=== PATIENT | male | born 1960 | race Caucasian/White ===

== ENCOUNTER 2019-09-14 08:28 | Outpatient (CLI) | payer BC, SELFPAY ==
--- NOTE | ~2019-09-14 | XR_ITS ---
XR elbow RT min 3V DATE: 09/14/2019 08:49 INDICATION: Fall, right elbow injury, pain, swelling TECHNIQUE: 4 views COMPARISON: None FINDINGS: No fracture or dislocation or joint effusion. No periosteal reaction or bone destruction. IMPRESSION: Negative Reviewed, dictated and finalized at location A. IMPRESSION: Negative
== END 2019-09-14 08:29 | disposition home or self-care (01) ==
LOC: ANHIMG 08:35
PROVIDERS: PCP Family Medicine; Visit Provider Physician Assistant
DX: M25.521 Pain in right elbow (principal)
CPT/HCPCS: 73080

== ENCOUNTER 2020-06-02 05:22 | Emergency (ER) | payer BC, SELFPAY ==
[2020-06-02 05:24] VITALS: PULSE 95; RESP 18; TEMP 35.7; O2SAT 100
--- NOTE | 2020-06-02 05:34 | PC.NURSE ---
pt states his doctor thinks he is having pain due to sciatica. pt was prescribed flexeril and tramadol. pt took last tramadol at midnight last night. pt states he last took flexeril at 9pm. pt states he took a norco from a previouos kidney stone at 5am.
[2020-06-02 05:37] VITALS: BP 137/87
--- NOTE | 2020-06-02 05:55 | ED.LOWEXIN ---
HPI - Extremity Injury (Lower) General Chief Complaint: Extremity Injury, Lower Stated Complaint: rt leg pain Time Seen by Provider: 06/02/20 05:34 Source: patient Mode of arrival: ambulatory Limitations: no limitations History of Present Illness HPI Narrative: Patient is a 60-year-old male complaining of right lower extremity pain, starting from the buttocks radiating all the way to his right leg, 9 out of 10, sharp, started approximately 3 weeks ago. Patient states that he ran out of his tramadol. Patient also states that he takes hydrocodone and a muscle relaxer for it. Patient denies any new injury. Patient denies any chest pain, shortness of breath, calf pain or swelling, fever or chills. Related Data Allergies Allergy/AdvReac Type Severity Reaction Status Date / Time Shrimp Allergy Severe Anaphylaxis Uncoded 09/11/19 13:34 Review of Systems Review of Systems: All systems reviewed & are unremarkable except as noted in HPI and below Constitutional: Constitutional: Denies body ache(s), Denies chills, Denies excessive sweating, Denies fatigue, Denies fever(s), Denies headache(s), Denies lethargy, Denies malaise, Denies weakness and Denies weight loss Eyes: Eyes: Denies blurry vision, Denies change in vision and Denies loss of vision ENT: Denies dizziness, Denies ear discharge, Denies headache(s), Denies lip swelling, Denies epistaxis, Denies nasal congestion, Denies neck pain, Denies throat swelling and Denies tongue swelling Cardiovascular: Cardiovascular: Denies chest pain, Denies chest pain at rest, Denies chest pain with activity, Denies diaphoresis, Denies rapid heart rate, Denies edema, Denies irregular heart rhythm, Denies lightheadedness, Denies palpitations, Denies dyspnea and Denies dyspnea on exertion Respiratory: Respiratory: Denies chest congestion, Denies cough, Denies hemoptysis, Denies dyspnea and Denies dyspnea on exertion Gastrointestinal: Gastrointestinal: Denies abdominal pain, Denies melena, Denies hematochezia, Denies diarrhea, Denies nausea, Denies vomiting and Denies hematemesis Musculoskeletal: Musculoskeletal: Denies abnormal gait, Denies deformity, Denies joint swelling, Denies limited range of motion, Denies neck pain and Denies numbness Neurologic: Denies Abnormal speech present, Denies abnormal gait, Denies confusion, Denies dizziness, Denies headache(s), Denies focal weakness, Denies loss of vision, Denies numbness, Denies Other visual disturbances, Denies Sensory deficit (Neuro) and Denies weakness Psychiatric: Psychiatric: Denies confusion, Denies depression, Denies auditory hallucinations, Denies homicidal ideation and Denies suicidal ideation Endocrine: Endocrine: Denies cold intolerance, Denies excessive sweating, Denies fatigue, Denies heat intolerance and Denies palpitations Hematologic/Lymphatic: Hematologic/Lymphatic: Denies easy bleeding and Denies easy bruising Allergic/Immunologic: Allergic/Immunologic: Denies lip swelling, Denies throat swelling and Denies tongue swelling PMF Family History Family History Mother Patient's mother is Social History Social History Smoking status: Never smoker Tobacco type: cigars Alcohol intake: current Gender identity (if verbalized by the patient): Male Sexual Orientation (if Verbalized by the Patient): Straight or Heterosexual Exam Const: General: cooperative, healthy appearing, comfortable, no acute distress, well developed, alert and awake; No confusion Orientation/consciousness: oriented to person, oriented to place, oriented to time, patient oriented x3 and No confusion Limitations: no limitations HENMT: Head: normal to inspection, normocephalic and atraumatic Ears: hearing grossly normal bilaterally, TM normal on the right and TM normal on the left General nose exam: Normal external nose present, No
[2020-06-02] MEDS: CYCLOBENZAPRINE HCL 10 MG TABLET PO (05:59)
[2020-06-02] MEDS: KETOROLAC 30 MG/ML VIAL (*BKC) IM (06:00)
[2020-06-02 06:44] VITALS: BP 130/88; PULSE 90; RESP 18; O2SAT 99
== END 2020-06-02 06:46 | disposition home or self-care (01) ==
LOC: ANHED 06:11
PROVIDERS: Emergency Provider Emergency Medicine; PCP Family Medicine
DX: M54.31 Sciatica, right side (principal)
CPT/HCPCS: 96372; 99284; A9270; J1100; J1885

== ENCOUNTER 2022-11-08 08:50 | Outpatient (CLI) | payer BC, SELFPAY ==
[2022-11-08 19:19] LABS: Alanine Aminotransferase 27 U/L (6-50); Albumin Level 4.3 g/dL (3.5-5.1); Alkaline Phosphatase 61 U/L (38-126); Anion Gap 6 mmol/L (8-16); Aspartate Amino Transferase 34 U/L (17-59); Bilirubin,Total 0.5 mg/dL (0.2-1.3); Blood Urea Nitrogen 15 mg/dL (9-20); Carbon Dioxide 29 mmol/L (22-30); Chloride 102 mmol/L (98-107); Cholesterol 210 mg/dL (0-200); Estimated Glomerular Filt Rate > 60; Glucose 107 mg/dL (65-110); HDL Direct 71 mg/dL; Potassium 4.5 mmol/L (3.4-5.0); Sodium 137 mmol/L (137-145); Triglycerides 78 mg/dL (<150)
[2022-11-08 19:30] LABS: LDL Cholesterol Direct 108 mg/dL
[2022-11-08 19:47] LABS: Prostate Specific Antigen 6.1 ng/mL (< OR = 4.0)
[2022-11-08 19:51] LABS: Vitamin D 25 Hydroxy 58.4 ng/mL
== END 2022-11-08 08:51 | disposition home or self-care (01) ==
LOC: ANHGOSHLAB 08:52
PROVIDERS: PCP Family Medicine; Visit Provider Family Medicine
DX: Z12.5 Encounter for screening for malignant neoplasm of prostate (principal); Z13.220 Encounter for screening for lipoid disorders; Z13.228 Encounter for screening for other metabolic disorders; E55.9 Vitamin D deficiency, unspecified
CPT/HCPCS: 36415; 80053; 80061; 82306; 84153; G0103

== ENCOUNTER 2023-11-14 08:17 | Outpatient (CLI) | payer BC, SELFPAY ==
[2023-11-14 13:12] LABS: Alanine Aminotransferase 33 U/L (6-50); Albumin Level 4.4 g/dL (3.5-5.1); Alkaline Phosphatase 69 U/L (38-126); Anion Gap 12 mmol/L (4-12); Aspartate Amino Transferase 47 U/L (17-59); Bilirubin,Total 0.5 mg/dL (0.2-1.3); Blood Urea Nitrogen 15 mg/dL (9-20); Carbon Dioxide 26 mmol/L (22-30); Chloride 98 mmol/L (98-107); Cholesterol 211 mg/dL (0-200); Estimated Glomerular Filt Rate > 60; Glucose 112 mg/dL (65-110); HDL Direct 67 mg/dL; Sodium 136 mmol/L (137-145); Triglycerides 129 mg/dL (<150)
[2023-11-14 13:15] LABS: Potassium 3.8 mmol/L (3.4-5.0)
[2023-11-14 13:23] LABS: LDL Cholesterol Direct 111 mg/dL
== END 2023-11-14 08:18 | disposition home or self-care (01) ==
LOC: ANHGOSHLAB 08:18
PROVIDERS: PCP Family Medicine; Visit Provider Family Medicine
DX: E78.5 Hyperlipidemia, unspecified (principal); Z13.228 Encounter for screening for other metabolic disorders
CPT/HCPCS: 36415; 80053; 80061

== ENCOUNTER 2024-10-28 15:22 | Emergency (ER) | payer BC, SELFPAY ==
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
[2024-10-28 15:28] VITALS: BP 154/84; PULSE 90; RESP 18; TEMP 36.7; O2SAT 98
[2024-10-28 18:42] VITALS: BP 150/97; PULSE 88; RESP 18; TEMP 36.6; O2SAT 98
[2024-10-28 19:19] VITALS: PULSE 77; RESP 16; O2SAT 98
[2024-10-28 20:21] VITALS: BP 165/95; PULSE 74; RESP 16; O2SAT 97
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
[2024-10-28 22:26] VITALS: BP 154/87; PULSE 76; RESP 18; O2SAT 97
== END 2024-10-28 22:28 | disposition home or self-care (01) ==
PROVIDERS: Emergency Provider Emergency Medicine; PCP Internal Medicine
DX: S16.1XXA Strain of muscle, fascia and tendon at neck level, initial encounter (principal); F17.290 Nicotine dependence, other tobacco product, uncomplicated; V43.52XA Car driver injured in collision with other type car in traffic accident, initial encounter
CPT/HCPCS: 70450; 72125; 99284; L0140